=== PATIENT | female | born 1970 | race Caucasian/White ===

== ENCOUNTER → 2018-03-08 | Outpatient (CLI) | payer BC ==
[2018-03-08 14:09] LABS: HCT 41.8 % (34.0-46.0); MCH 32.8 pg (25.0-35.0); MCHC 33.4 g/dL (31.0-37.0); Mean Platelet Volume 6.8; Platelet Count 299 k/uL (150-450); RBC 4.27 m/uL (3.80-5.40); RDW 12.6 % (11.5-15.5); WBC 11.5 k/uL (3.8-10.6)
[2018-03-08 14:32] LABS: ALT 70 U/L (9-52); AST 43 U/L (14-36); Albumin 4.3 g/dL (3.5-5.0); Alkaline Phosphatase 77 U/L (38-126); Anion Gap 12 mmol/L; Blood Urea Nitrogen 10 mg/dL (7-17); Calcium 9.6 mg/dL (8.4-10.2); Carbon Dioxide 27 mmol/L (22-30); Chloride 105 mmol/L (98-107); Glucose 90 mg/dL (74-99); Potassium 4.3 mmol/L (3.5-5.1); Sodium 144 mmol/L (137-145); Total Bilirubin 0.4 mg/dL (0.2-1.3); Total Protein 7.3 g/dL (6.3-8.2)
--- NOTE | 2018-03-08 14:47 | US ---
EXAMINATION TYPE: US thyroid st tissue head/neck DATE OF EXAM: 03/08/2018 COMPARISON: NONE CLINICAL HISTORY: R53.83 OTHER FATIGUE. GLAND SIZE: Right Lobe: 3.0 x 1.5 x 1.6 cm Overall Parenchyma: heterogenous Left Lobe: 1.9 x 1.1 x 0.8 cm Overall Parenchyma: heterogeneous Isthmus Thickness: 0.2 cm NODULES RIGHT: # of nodules measured on right: 1 1. 0.9 X 0.5 x 0.5 cm hypoechoic solid nodule at the lower pole with well-defined margins. This no dule is wider than tall and shows no intranodular vascularity. No prior LEFT: # of nodules measured on left: 0 ISTHMUS: # of nodules measured in the isthmus: 0 Bilateral neck scanned, no evidence of lymphadenopathy. IMPRESSION: There may be an underlying thyroiditis.
== END | disposition home or self-care (01) ==
LOC: RADUSWWP 13:32
PROVIDERS: ATTEND Internal Medicine Endocrinology, Diabetes & Metabolism
DX: R53.83 Other fatigue (principal); N92.6 Irregular menstruation, unspecified
CPT/HCPCS: 76536; 80053; 82533; 82607; 83001; 83002; 84146; 84443; 85027

== ENCOUNTER → 2018-06-21 | Outpatient (CLI) | payer BC | END | disposition home or self-care (01) | LOC: LABWHC1 13:28 | PROVIDERS: ATTEND Internal Medicine Endocrinology, Diabetes & Metabolism | DX: E03.8 Other specified hypothyroidism (principal); R53.83 Other fatigue | CPT/HCPCS: 36415; 84443 ==

== ENCOUNTER → 2018-07-31 | Outpatient (CLI) | payer BC ==
--- NOTE | 2018-07-31 15:49 | CT ---
EXAMINATION TYPE: CT abdomen pelvis w con DATE OF EXAM: 07/31/2018 COMPARISON: NONE HISTORY: 47-year-old female abdominal pain, Epigastric pressure/pain TECHNIQUE: Contiguous axial scanning of the abdomen and pelvis following administration of 100 ml Iso shahrzad 300 IV contrast. Delayed images through the kidneys and coronal/sagittal reconstructions perform ed. CT DLP: 1450.5 mGycm Automated exposure control for dose reduction was used. FINDINGS: Heart normal size without pericardial effusion. Strandy atelectasis left base without pleural effusio n. Low attenuation of the hepatic parenchyma suggesting underlying fatty infiltration. Portal venous sys tem is patent. No biliary ductal dilatation. Gallbladder, adrenal glands, kidneys, spleen, and pancreas are within normal limits. No dilated small bowel, free fluid, or free air. No mesenteric or retroperitoneal lymphadenopathy. Normal appendix. Mild stool burden without pericolonic inflammatory change. Bladder urine distended. Pelvic phleboliths on the left. Uterus and ovaries are visualized with a 1.7 cm dominant follicle or functional cyst on the left. No abnormal fluid collection the pelvis or pelv ic lymphadenopathy. Bones: No osseous destructive process. IMPRESSION: 1. HEPATIC STEATOSIS. CORRELATE WITH LFT's, LIPID PROFILE, AND PATIENT RISK FACTORS. 2. OTHERWISE, NO ACUTE INFLAMMATORY PROCESS IDENTIFIED IN THE ABDOMEN OR PELVIS TO EXPLAIN THE PATIEN T'S SYMPTOMS.
== END | disposition home or self-care (01) ==
LOC: RADCTMAIN 12:39
PROVIDERS: ATTEND Family Medicine
DX: K76.0 Fatty (change of) liver, not elsewhere classified (principal); R10.9 Unspecified abdominal pain
CPT/HCPCS: 74177; Q9967

== ENCOUNTER → 2018-10-09 | Outpatient (CLI) | payer BC ==
--- NOTE | 2018-10-10 10:59 | MM ---
Reason for exam: screening (asymptomatic). Last mammogram was performed 7 years and 10 months ago. History: Patient is nulliparous. Physical Findings: A clinical breast exam by your physician is recommended on an annual basis and results should be correlated with mammographic findings. MG 3D Screening Mammo W/Cad Bilateral CC and MLO view(s) were taken. XCCL view(s) were taken of the left breast. Prior study comparison: December 07, 2010, mammogram, performed at [facility]. There are scattered fibroglandular densities. No significant changes when compared with prior studies. ASSESSMENT: Benign, BI-RAD 2 RECOMMENDATION: Routine screening mammogram of both breasts in 1 year.
== END | disposition home or self-care (01) ==
LOC: RADMAMWWP 13:39
PROVIDERS: ATTEND Family Medicine
DX: Z12.31 Encounter for screening mammogram for malignant neoplasm of breast (principal)
CPT/HCPCS: 77063; 77067

== ENCOUNTER 2019-07-13 16:21 | Emergency (ER) | payer BC ==
[2019-07-13] MEDS ORDERED: DICYCLOMINE 10 MG/ML 2 ML AMP IM STA (17:18)
[2019-07-13] MEDS ORDERED: PANTOPRAZOLE 40 MG/10 ML VIAL IVP STA (17:18)
[2019-07-13] MEDS ORDERED: SODIUM CHLORIDE 0.9% 1,000 ML IV STA (17:18)
[2019-07-13 17:46] LABS: Basophils # (A) 0.1 k/uL (0-0.2); Basophils % (A) 1 %; Eosinophils # (A) 0.6 k/uL (0-0.7); Eosinophils % (A) 6 %; HCT 41.8 % (34.0-46.0); HGB 14.3 gm/dL (11.4-16.0); Lymphocytes # (A) 2.8 k/uL (1.0-4.8); Lymphocytes % (A) 30 %; MCH 32.7 pg (25.0-35.0); MCHC 34.3 g/dL (31.0-37.0); MCV 95.5 fL (80.0-100.0); Mean Platelet Volume 6.9; Monocytes # (A) 0.5 k/uL (0-1.0); Monocytes % (A) 5 %; Neutrophils # (A) 5.2 k/uL (1.3-7.7); Neutrophils % (A) 56 %; Platelet Count 339 k/uL (150-450); RBC 4.37 m/uL (3.80-5.40); RDW 12.5 % (11.5-15.5); WBC 9.3 k/uL (3.8-10.6)
[2019-07-13 17:54] LABS: Appearance,Urine Clear (Clear); Bilirubin,Urine Negative (Negative); Blood,Urine Negative (Negative); Color,Urine Light Yellow; Glucose,Urine (UA) Negative (Negative); Ketones,Urine Negative (Negative); Leukocyte Esterase,Urine Negative (Negative); Nitrite,Urine Negative (Negative); PH, Urine 6.5 (5.0-8.0); Protein,Urine Negative (Negative); Specific Gravity,Urine 1.003 (1.001-1.035); Urobilinogen,Urine <2.0 mg/dL (<2.0)
[2019-07-13 17:56] LABS: ALT 22 U/L (9-52); AST 50 U/L (14-36); African American GFR (CKD) >90 (>60 ml/min/1.73 sqM); Albumin 4.5 g/dL (3.5-5.0); Alkaline Phosphatase 65 U/L (38-126); Amylase 68 U/L (30-110); Anion Gap 9 mmol/L; Blood Urea Nitrogen 10 mg/dL (7-17); Calcium 9.3 mg/dL (8.4-10.2); Carbon Dioxide 24 mmol/L (22-30); Chloride 103 mmol/L (98-107); Glucose 91 mg/dL (74-99); Sodium 136 mmol/L (137-145); Total Bilirubin 0.9 mg/dL (0.2-1.3); Total Protein 8.4 g/dL (6.3-8.2)
[2019-07-13 17:57] LABS: Potassium 5.8 mmol/L (3.5-5.1)
[2019-07-13] MEDS ORDERED: DICYCLOMINE 20 MG TAB PO STA (18:24)
--- NOTE | 2019-07-13 18:59 | ED ---
General Adult HPI - General Chief complaint: GI Bleed Stated complaint: diarrhea Time Seen by Provider: 07/13/19 16:36 Source: patient, RN notes reviewed Mode of arrival: ambulatory Limitations: no limitations - History of Present Illness Initial comments: 48-year-old female with a past medical history of constipation, GERD presents to the emergency department for a chief when her diarrhea. Patient states she has had diarrhea for about 2 weeks. States it is very loose. Patient states to 3 episodes of bright red blood in the toilet bowl over the past several days. States she does have abdominal pain that comes and goes on a cramping fashion. Worse in the lower abdomen. Denies nausea vomiting. Does admit to a hospitalization at the beginning of June for removal of polyps on vocal cord. Otherwise denies any longterm visits, travel, or camping.Patient has no other complaints at this time including shortness of breath, chest pain, nausea or vomiting, headache, or visual changes. - Related Data Home Medications Medication Instructions Recorded Confirmed Cholecalciferol [Vitamin D3] 2,000 unit PO DAILY 12/09/15 12/14/15 Levothyroxine Sodium [Synthroid] 25 mcg PO DAILY 12/09/15 12/14/15 Vitamin B Complex 1 each PO DAILY 12/09/15 12/14/15 Previous Rx's Medication Instructions Recorded Dicyclomine [Bentyl] 20 mg PO BID PRN #10 tablet 07/13/19 Allergies Allergy/AdvReac Type Severity Reaction Status Date / Time No Known Allergies Allergy Verified 07/13/19 16:31 Review of Systems ROS Statement: Those systems with pertinent positive or pertinent negative responses have been documented in the HPI. ROS Other: All systems not noted in ROS Statement are negative. Past Medical History Past Medical History: GERD/Reflux, Osteoarthritis (OA), Skin Disorder, Thyroid Disorder Additional Past Medical History / Comment(s): constipation, hx localized morphea, History of Any Multi-Drug Resistant Organisms: None Reported Past Surgical History: Breast Surgery, Orthopedic Surgery Additional Past Surgical History / Comment(s): rt foot and ankle surgery, polyps removed on vocal cords Past Anesthesia/Blood Transfusion Reactions: No Reported Reaction Past Psychological History: No Psychological Hx Reported Smoking Status: Former smoker Past Alcohol Use History: None Reported Past Drug Use History: None Reported - Past Family History Mother Family Medical History: No Reported History General Exam Limitations: no limitations General appearance: alert, in no apparent distress Head exam: Present: atraumatic, normocephalic, normal inspection Eye exam: Present: normal appearance, PERRL, EOMI. Absent: scleral icterus, conjunctival injection, periorbital swelling ENT exam: Present: normal exam, mucous membranes moist Neck exam: Present: normal inspection, full ROM. Absent: tenderness, meningismus, lymphadenopathy Respiratory exam: Present: normal lung sounds bilaterally. Absent: respiratory distress, wheezes, rales, rhonchi, stridor Cardiovascular Exam: Present: regular rate, normal rhythm, normal heart sounds. Absent: systolic murmur, diastolic murmur, rubs, gallop, clicks GI/Abdominal exam: Present: soft, tenderness (Suprapubic and left lower quadrant tenderness noted), normal bowel sounds. Absent: distended, guarding, rebound, rigid Rectal exam: Present: normal inspection, normal rectal tone. Absent: black stool, bloody stool, fecal impaction, hemorrhoids, mass, tenderness Neurological exam: Present: alert Psychiatric exam: Present: normal affect, normal mood Course Vital Signs 07/13/19 07/13/19 16:28 19:33 Temperature 97.5 F L 98 F Pulse Rate 87 76 Respiratory 18 16 Rate Blood Pressure 135/77 115/72 O2 Sat by Pulse 98 99 Oximetry Medical Decision Making - Medical Decision Making CBC unremarkable. Hemoglobin is stable at 14.3. CMP did initially show potassium of 5.8 however the specimen was hemolyzed. Repeat potassium is 4.0. CMP otherwise unremarkable. Urinalysis is negative. Occult blood is negative. CT abdomen and pelvis was obtained which shows findings suggestive of colitis descending colon to rectum. However there is possibility of neoplasm within the rectum that should be considered. I did discuss this with patient and discussed the importance of post follow-up with GI. Patient has seen Dr. Jett in the past and will be referred to his practice. I do not think this is a bacterial colitis at this time as patient does not have a fever or white blood cell count. She was unable to give a sample here in the emergency department so will be given outpatient stool prescriptions for culture and C. diff. pending reevaluation patient is in much better. States she is actually feeling better and she salts in the past couple weeks. Patient will be discharged home. She'll return if she has any worsening symptoms. These were discussed with her such as fever or worsening pain.I discussed this case with attending Dr. Ramos who agrees with this assessment and treatment plan. - Lab Data Result diagrams: 07/13/19 16:49 07/13/19 18:45 Lab Results 07/13/19 07/13/19 07/13/19 Range/Units 16:49 16:49 16:49 WBC 9.3 (3.8-10.6) k/uL RBC 4.37 (3.80-5.40) m/uL Hgb 14.3 (11.4-16.0) gm/dL Hct 41.8 (34.0-46.0) % MCV 95.5 (80.0-100.0) fL MCH 32.7 (25.0-35.0) pg MCHC 34.3 (31.0-37.0) g/dL RDW 12.5 (11.5-15.5) % Plt Count 339 (150-450) k/uL Neutrophils % 56 % Lymphocytes % 30 % Monocytes % 5 % Eosinophils % 6 % Basophils % 1 % Neutrophils # 5.2 (1.3-7.7) k/uL Lymphocytes # 2.8 (1.0-4.8) k/uL Monocytes # 0.5 (0-1.0) k/uL Eosinophils # 0.6 (0-0.7) k/uL Basophils # 0.1 (0-0.2) k/uL Sodium 136 L (137-145) mmol/L Potassium 5.8 H (3.5-5.1) mmol/L Chloride 103 (98-107) mmol/L Carbon Dioxide 24 (22-30) mmol/L Anion Gap 9 mmol/L BUN 10 (7-17) mg/dL Creatinine 0.75 (0.52-1.04) mg/dL Est GFR (CKD-EPI)AfAm >90 (>60 ml/min/1.73 sqM) Est GFR (CKD-EPI)NonAf >90 (>60 ml/min/1.73 sqM) Glucose 91 (74-99) mg/dL Plasma Lactic Acid Raj (0.7-2.0) mmol/L Calcium 9.3 (8.4-10.2) mg/dL Total Bilirubin 0.9 (0.2-1.3) mg/dL AST 50 H (14-36) U/L ALT 22 (9-52) U/L Alkaline Phosphatase 65 (38-126) U/L Total Protein 8.4 H (6.3-8.2) g/dL Albumin 4.5 (3.5-5.0) g/dL Amylase 68 (30-110) U/L Lipase 263 (23-300) U/L Urine Color Urine Appearance (Clear) Urine pH (5.0-8.0) Ur Specific [place] (1.001-1.035) Urine Protein (Negative) Urine Glucose (UA) (Negative) Urine Ketones (Negative) Urine Blood (Negative) Urine Nitrite (Negative) Urine Bilirubin (Negative) Urine Urobilinogen (<2.0) mg/dL Ur Leukocyte Esterase (Negative) Urine HCG, Qual Not Detected (Not Detectd) Stool Occult Blood (Negative) Blood Type Blood Type Confirm Blood Type Recheck Bld Type Recheck Status Antibody Screen Spec Expiration Date 07/13/19 07/13/19 07/13/19 Range/Units 16:49 16:49 17:20 WBC (3.8-10.6) k/uL RBC (3.80-5.40) m/uL Hgb (11.4-16.0) gm/dL Hct (34.0-46.0) % MCV (80.0-100.0) fL MCH (25.0-35.0) pg MCHC (31.0-37.0) g/dL RDW (11.5-15.5) % Plt Count (150-450) k/uL Neutrophils % % Lymphocytes % % Monocytes % % Eosinophils % % Basophils % % Neutrophils # (1.3-7.7) k/uL Lymphocytes # (1.0-4.8) k/uL Monocytes # (0-1.0) k/uL Eosinophils # (0-0.7) k/uL Basophils # (0-0.2) k/uL Sodium (137-145) mmol/L Potassium (3.5-5.1) mmol/L Chloride (98-107) mmol/L Carbon Dioxide (22-30) mmol/L Anion Gap mmol/L BUN (7-17) mg/dL Creatinine (0.52-1.04) mg/dL Est GFR (CKD-EPI)AfAm (>60 ml/min/1.73 sqM) Est GFR (CKD-EPI)NonAf (>60 ml/min/1.73 sqM) Glucose (74-99) mg/dL Plasma Lactic Acid Raj 0.6 L (0.7-2.0) mmol/L Calcium (8.4-10.2) mg/dL Total Bilirubin (0.2-1.3) mg/dL AST (14-36) U/L ALT (9-52) U/L Alkaline Phosphatase (38-126) U/L Total Protein (6.3-8.2) g/dL Albumin (3.5-5.0) g/dL Amylase (30-110) U/L Lipase (23-300) U/L Urine Color Light Yellow Urine Appearance Clear (Clear) Urine pH 6.5 (5.0-8.0) Ur Specific [place] 1.003 (1.001-1.035) Urine Protein Negative (Negative) Urine Glucose (UA) Negative (Negative) Urine Ketones Negative (Negative) Urine Blood Negative (Negative) Urine Nitrite Negative (Negative) Urine Bilirubin Negative (Negative) Urine Urobilinogen <2.0 (<2.0) mg/dL Ur Leukocyte Esterase Negative (Negative) Urine HCG, Qual (Not Detectd) Stool Occult Blood (Negative) Blood Type O Positive Blood Type Confirm Blood Type Recheck No Previous Record Bld Type Recheck Status CABO Indicated Antibody Screen NEGATIVE Spec Expiration Date 07/16/2019 - 234807/13/19 07/13/19 07/13/19 Range/Units 17:20 18:21 18:45 WBC (3.8-10.6) k/uL RBC (3.80-5.40) m/uL Hgb (11.4-16.0) gm/dL Hct (34.0-46.0) % MCV (80.0-100.0) fL MCH (25.0-35.0) pg MCHC (31.0-37.0) g/dL RDW (11.5-15.5) % Plt Count (150-450) k/uL Neutrophils % % Lymphocytes % % Monocytes % % Eosinophils % % Basophils % % Neutrophils # (1.3-7.7) k/uL Lymphocytes # (1.0-4.8) k/uL Monocytes # (0-1.0) k/uL Eosinophils # (0-0.7) k/uL Basophils # (0-0.2) k/uL Sodium (137-145) mmol/L Potassium 4.0 (3.5-5.1) mmol/L Chloride (98-107) mmol/L Carbon Dioxide (22-30) mmol/L Anion Gap mmol/L BUN (7-17) mg/dL Creatinine (0.52-1.04) mg/dL Est GFR (CKD-EPI)AfAm (>60 ml/min/1.73 sqM) Est GFR (CKD-EPI)NonAf (>60 ml/min/1.73 sqM) Glucose (74-99) mg/dL Plasma Lactic Acid Raj (0.7-2.0) mmol/L Calcium (8.4-10.2) mg/dL Total Bilirubin (0.2-1.3) mg/dL AST (14-36) U/L ALT (9-52) U/L Alkaline Phosphatase (38-126) U/L Total Protein (6.3-8.2) g/dL Albumin (3.5-5.0) g/dL Amylase (30-110) U/L Lipase (23-300) U/L Urine Color Urine Appearance (Clear) Urine pH (5.0-8.0) Ur Specific [place] (1.001-1.035) Urine Protein (Negative) Urine Glucose (UA) (Negative) Urine Ketones (Negative) Urine Blood (Negative) Urine Nitrite (Negative) Urine Bilirubin (Negative) Urine Urobilinogen (<2.0) mg/dL Ur Leukocyte Esterase (Negative) Urine HCG, Qual (Not Detectd) Stool Occult Blood Negative (Negative) Blood Type Blood Type Confirm O Positive Blood Type Recheck Bld Type Recheck Status Antibody Screen Spec Expiration Date Disposition Clinical Impression: Diarrhea, Colitis Disposition: HOME SELF-CARE Condition: Good Instructions (If sedation given, give patient instructions): Colitis (ED), Acute Diarrhea (ED) Additional Instructions: Please take Bentyl as needed. Given outpatient stool sample. Follow-up with GI and primary care tomorrow morning. If you have worsening symptoms such as worsening pain or fever return immediately to the emergency department. Prescriptions: Dicyclomine [Bentyl] 20 mg PO BID PRN #10 tablet PRN Reason: pain Is patient prescribed a controlled substance at d/c from ED?: No Referrals: Radha Markham MD [Primary Care Provider] - 1-2 days Time of Disposition: 20:24
--- NOTE | 2019-07-13 19:45 | CT ---
EXAMINATION TYPE: CT abdomen pelvis w con DATE OF EXAM: 07/13/2019 COMPARISON: INDICATION: Abdominal pain, cramping. Chronic diarrhea, pt said nothing over counter is stopping diar pamela DLP: 1209.4 mGycm, Automated exposure control for dose reduction was used. CONTRAST: 100 mL of Isovue 300. Study performed without Oral Contrast TECHNIQUE: Axial images were obtained from above the diaphragm to the pubic rami in the axial plane a t 5 mm thick sections. Reconstructed images are reviewed on the computer in the coronal plane. FINDINGS: Limited CT sections are obtained the lung bases. The lung bases are clear. CT ABDOMEN: Liver: Normal Spleen: Normal Pancreas: Normal Adrenal glands: The adrenal glands are normal. Gallbladder: Normal Kidneys: No masses are evident. No hydronephrosis is present. No cysts are present. Delayed images were obtained through the kidneys, which remain unremarkable. Aorta: Vascular calcification is within the aorta. Inferior vena cava: Normal. CT PELVIS: Subtle wall thickening appears to be within the sigmoid colon and distal descending colon. Correlate for mild colitis. No suspicious adjacent inflammatory changes are evident. There is some more irregul ar thickening of the rectum with some perirectal stranding. Colitis could be considered. Other etiolo gies should be considered such as neoplasm. Additional workup is recommended. The studies performed w ithout oral contrast limiting bowel evaluation. Appendix: Normal as visualized. Urinary bladder: Normal. Genitourinary structures: Uterus appears unremarkable. Adnexal regions are clear. Osseous structures: No suspicious lytic or sclerotic lesions. IMPRESSIONS: 1. Findings suggestive for colitis descending colon to rectum. Possibility of neoplasm within the re ctum should be considered.
[2019-07-13 20:59] VITALS: BP 118/75; PULSE 73; RESP 18; TEMP 98.2
== END 2019-07-13 21:14 | disposition home or self-care (01) ==
LOC: EC 16:21
DX: K52.9 Noninfective gastroenteritis and colitis, unspecified (principal); K21.9 Gastro-esophageal reflux disease without esophagitis; M19.90 Unspecified osteoarthritis, unspecified site; E07.9 Disorder of thyroid, unspecified; Z79.890 Hormone replacement therapy; Z79.899 Other long term (current) drug therapy; Z87.891 Personal history of nicotine dependence
CPT/HCPCS: 36415; 86900; 86901; 80053; 82150; 83605; 83690; 84132; 85025; 86850; 82272; 81003; 81025; 87324; 87045; 87046; 74177; 99285; 96374; 96361 ×3; C9113; Q9967

== ENCOUNTER → 2019-08-11 | Outpatient (CLI) | payer BC ==
[2019-08-11 16:45] LABS: Basophils % (A) 0 %; Eosinophils # (A) 0.1 k/uL (0-0.7); Eosinophils % (A) 1 %; HCT 41.3 % (34.0-46.0); Lymphocytes # (A) 2.2 k/uL (1.0-4.8); Lymphocytes % (A) 18 %; MCH 31.7 pg (25.0-35.0); MCHC 31.6 g/dL (31.0-37.0); MCV 100.3 fL (80.0-100.0); Mean Platelet Volume 7.2; Monocytes # (A) 0.5 k/uL (0-1.0); Monocytes % (A) 4 %; Neutrophils # (A) 9.2 k/uL (1.3-7.7); Neutrophils % (A) 76 %; Platelet Count 333 k/uL (150-450); RBC 4.11 m/uL (3.80-5.40); RDW 13.1 % (11.5-15.5); WBC 12.1 k/uL (3.8-10.6)
[2019-08-11 19:47] LABS: Erythrocyte Sedimentation Rate 10 mm/hr (0-20)
[2019-08-12 00:51] LABS: ALT 28 U/L (8-44); AST 21 U/L (13-35); African American GFR (CKD) 88.2 (60.0-200.0); Albumin/Globulin Ratio 1.91 (1.60-3.17); Alkaline Phosphatase 70 U/L (41-126); C Reactive Protein <0.4 mg/dL (0.0-0.8); Calcium 9.4 mg/dL (8.7-10.3); Carbon Dioxide 27.7 mmol/L (21.6-31.8); Chloride 102 mmol/L (96-109); Globulin 2.2 g/dL (1.6-3.3); Glucose 114 mg/dL (70-110); Non-African American GFR(CKD) 76.1 (60.0-200.0); Potassium 4.7 mmol/L (3.5-5.5); Sodium 139 mmol/L (135-145); Total Bilirubin 0.4 mg/dL (0.3-1.2); Total Protein 6.4 g/dL (6.2-8.2)
== END | disposition home or self-care (01) ==
LOC: LABWHC1 15:01
PROVIDERS: ATTEND Nurse Practitioner
DX: K52.9 Noninfective gastroenteritis and colitis, unspecified (principal)
CPT/HCPCS: 36415; 80053; 85025; 85652; 86140

== ENCOUNTER → 2019-09-01 | Outpatient (CLI) | payer BC | END | disposition home or self-care (01) | LOC: LABWHC1 10:56 | PROVIDERS: ATTEND Internal Medicine Endocrinology, Diabetes & Metabolism | DX: E03.8 Other specified hypothyroidism (principal) | CPT/HCPCS: 36415; 84443 ==

== ENCOUNTER → 2019-09-24 | Outpatient (CLI) | payer BC ==
[2019-09-24 17:51] LABS: Basophils # (A) 0.1 k/uL (0-0.2); Basophils % (A) 1 %; Eosinophils # (A) 0.6 k/uL (0-0.7); Eosinophils % (A) 8 %; HCT 41.7 % (34.0-46.0); HGB 13.3 gm/dL (11.4-16.0); Lymphocytes # (A) 2.2 k/uL (1.0-4.8); Lymphocytes % (A) 27 %; MCH 31.5 pg (25.0-35.0); MCV 98.5 fL (80.0-100.0); Mean Platelet Volume 7.9; Monocytes # (A) 0.4 k/uL (0-1.0); Monocytes % (A) 5 %; Neutrophils # (A) 4.6 k/uL (1.3-7.7); Neutrophils % (A) 57 %; Platelet Count 282 k/uL (150-450); RBC 4.23 m/uL (3.80-5.40); RDW 12.3 % (11.5-15.5); WBC 8.1 k/uL (3.8-10.6)
[2019-09-25 01:12] LABS: African American GFR (CKD) 77.7 (60.0-200.0); Albumin 4.4 g/dL (3.80-4.90); Albumin/Globulin Ratio 1.76 (1.60-3.17); Anion Gap 11.9 mmol/L (4.00-12.00); Calcium 9.2 mg/dL (8.7-10.3); Carbon Dioxide 24.1 mmol/L (21.6-31.8); Globulin 2.5 g/dL (1.6-3.3); Magnesium 2.2 mg/dL (1.5-2.4); Potassium 4.6 mmol/L (3.5-5.5); Total Bilirubin 0.2 mg/dL (0.3-1.2); Total Protein 6.9 g/dL (6.2-8.2)
== END | disposition home or self-care (01) ==
LOC: LABWHC1 15:52
PROVIDERS: ATTEND Nurse Practitioner
DX: K51.90 Ulcerative colitis, unspecified, without complications (principal)
CPT/HCPCS: 36415; 80053; 83735; 85025

== ENCOUNTER → 2020-02-02 | Outpatient (CLI) | payer BC ==
[2020-02-02 12:48] LABS: HCT 43.6 % (34.0-46.0); HGB 13.8 gm/dL (11.4-16.0); MCH 30.3 pg (25.0-35.0); MCHC 31.7 g/dL (31.0-37.0); MCV 95.8 fL (80.0-100.0); Mean Platelet Volume 7.9; Platelet Count 311 k/uL (150-450); RBC 4.55 m/uL (3.80-5.40); RDW 12.7 % (11.5-15.5); WBC 8.7 k/uL (3.8-10.6)
[2020-02-02 15:06] LABS: Erythrocyte Sedimentation Rate 24 mm/hr (0-20)
[2020-02-02 18:58] LABS: ALT 26 U/L (8-44); AST 25 U/L (13-35); African American GFR (CKD) 77.2 (60.0-200.0); Albumin/Globulin Ratio 1.43 (1.60-3.17); Alkaline Phosphatase 72 U/L (41-126); C Reactive Protein <0.4 mg/dL (0.0-0.8); Calcium 9.5 mg/dL (8.7-10.3); Carbon Dioxide 25.1 mmol/L (21.6-31.8); Chloride 104 mmol/L (96-109); Glucose 97 mg/dL (70-110); Non-African American GFR(CKD) 66.6 (60.0-200.0); Potassium 5.1 mmol/L (3.5-5.5); Sodium 138 mmol/L (135-145); Total Bilirubin 0.6 mg/dL (0.3-1.2); Total Protein 7.3 g/dL (6.2-8.2)
== END | disposition home or self-care (01) ==
LOC: LABWHC1 11:28
PROVIDERS: ATTEND Nurse Practitioner
DX: K51.90 Ulcerative colitis, unspecified, without complications (principal)
CPT/HCPCS: 36415; 80053; 83993; 85027; 85652; 86140

== ENCOUNTER → 2020-02-18 | Outpatient (CLI) | payer BC ==
--- NOTE | 2020-02-18 14:26 | XR ---
EXAMINATION TYPE: XR knee complete bilateral DATE OF EXAM: 02/18/2020 CLINICAL HISTORY: Bilateral pain assess for possible rheumatoid arthritis TECHNIQUE: Three views of the bilateral knees are obtained. COMPARISON: None. FINDINGS: There is no acute fracture/dislocation evident in either knee. [id number] patellofem oral joint space narrowing is seen bilaterally fairly symmetric. Mild medial tibiofemoral compartment narrowing is present bilaterally with some mild right-sided spurring. The overlying soft tissue olivia ears unremarkable bilaterally. IMPRESSION: As above.
--- NOTE | 2020-02-18 14:27 | XR ---
EXAMINATION TYPE: XR pelvis AP view DATE OF EXAM: 02/18/2020 CLINICAL HISTORY: Pain possible rheumatoid arthritis TECHNIQUE: A single AP view of the pelvis is obtained. COMPARISON: CT abdomen and pelvis July 13, 2019. FINDINGS: There is no acute fracture/dislocation evident in the pelvis. The sacroiliac joints appea r symmetric and unremarkable. Mild axial joint space loss and acetabular spurring of both hips fairl y symmetric in appearance. Occasional overlying Scattered pelvic phleboliths. IMPRESSION: As above.
--- NOTE | 2020-02-18 14:29 | XR ---
EXAMINATION TYPE: XR foot complete bilateral DATE OF EXAM: 02/18/2020 CLINICAL HISTORY: Bilateral foot pain, possible rheumatoid arthritis. TECHNIQUE: Frontal, lateral, and oblique images of the bilateral feet are obtained. COMPARISON: None FINDINGS: There is no acute fracture/dislocation evident in either foot. Overlying soft tissue is un remarkable bilaterally. Right foot shows mild to moderate narrowing with moderate spurring first metatarsal phalangeal joint. Tiny inferior calcaneal spur. Flexion of the toes. Left foot shows large inferior calcaneal spur. Some flexion of the toes is present. IMPRESSION: As above.
== END | disposition home or self-care (01) ==
LOC: RADXRMAIN 13:51
PROVIDERS: ATTEND Internal Medicine Rheumatology
DX: M22.2X1 Patellofemoral disorders, right knee (principal); I87.8 Other specified disorders of veins; M21.271 Flexion deformity, right ankle and toes; M21.272 Flexion deformity, left ankle and toes; M77.32 Calcaneal spur, left foot; M79.672 Pain in left foot; M79.671 Pain in right foot; M54.5 Low back pain
CPT/HCPCS: 72170

== ENCOUNTER → 2020-03-08 | Outpatient (CLI) | payer BC | END | disposition home or self-care (01) | LOC: LABWHC1 12:37 | PROVIDERS: ATTEND Internal Medicine Endocrinology, Diabetes & Metabolism | DX: E03.8 Other specified hypothyroidism (principal); E53.8 Deficiency of other specified B group vitamins | CPT/HCPCS: 36415; 82607; 84443 ==

== ENCOUNTER → 2020-03-25 | Outpatient (CLI) | payer BC ==
--- NOTE | 2020-03-26 09:32 | MM ---
Reason for exam: screening (asymptomatic). Last mammogram was performed 1 year and 6 months ago. History: Patient is nulliparous. Physical Findings: A clinical breast exam by your physician is recommended on an annual basis and results should be correlated with mammographic findings. MG 3D Screening Mammo W/Cad Bilateral CC and MLO view(s) were taken. Prior study comparison: October 09, 2018, bilateral MG 3d screening mammo w/cad. The breast tissue is heterogeneously dense. This may lower the sensitivity of mammography. Focal asymmetry right CC view only middle posterior depth outer aspect CC 16/66 10-11cm from nipple. This finding is changed when compared with previous exams. ASSESSMENT: Incomplete: need additional imaging evaluation, BI-RAD 0 RECOMMENDATION: Special view mammogram of the right breast. If lesion persists on supplemental views, image directed ultrasound is recommended. [facility] will attempt to contact patient to return for supplemental views and ultrasound if indicated.
== END | disposition home or self-care (01) ==
LOC: RADMAMWWP 09:55
PROVIDERS: ATTEND Internal Medicine
DX: Z12.31 Encounter for screening mammogram for malignant neoplasm of breast (principal)
CPT/HCPCS: 77063; 77067

== ENCOUNTER → 2020-04-01 | Outpatient (CLI) | payer BC ==
--- NOTE | 2020-04-02 10:10 | MM ---
Reason for exam: additional evaluation requested from abnormal screening. Last mammogram was performed less than 1 month ago. History: Patient is nulliparous. Excisional biopsy of the left breast, 2001. Excisional biopsy of the right breast. Took hormonal contraceptives for 23 years beginning at age 13. Physical Findings: Nurse did not find any significant physical abnormalities on exam. MG 3D Work Up W/Cad RT Spot compression CC, spot compression MLO, and LM view(s) were taken of the right breast. Prior study comparison: March 25, 2020, bilateral MG 3d screening mammo w/cad. October 09, 2018, bilateral MG 3d screening mammo w/cad. There is no discrete abnormality. These results were verbally communicated with the patient and result sheet given to the patient on 04/01/20. ASSESSMENT: Probably benign, BI-RAD 3 RECOMMENDATION: Follow-up diagnostic mammogram of the right breast in 6 months.
== END | disposition home or self-care (01) ==
LOC: RADMAMWWP 14:52
PROVIDERS: ATTEND Internal Medicine
DX: R92.8 Other abnormal and inconclusive findings on diagnostic imaging of breast (principal)
CPT/HCPCS: 77061; 77065

== ENCOUNTER → 2020-12-20 | Outpatient (CLI) | payer OTHER ==
[2020-12-20 18:13] LABS: HCT 40.7 % (37.2-46.3); HGB 13.2 g/dL (12.0-15.0); MCH 31.3 pg (27.0-32.0); MCHC 32.4 g/dL (32.0-37.0); MCV 96.4 fL (80.0-97.0); Mean Platelet Volume 10.7 fL (9.5-12.2); Platelet Count 279 X 10*3/uL (140-440); RBC 4.22 X 10*6/uL (4.10-5.20); RDW 11.9 % (11.5-14.5); WBC 6.75 X 10*3/uL (4.50-10.00)
[2020-12-20 19:14] LABS: Erythrocyte Sedimentation Rate 27 mm/Hr (0-20)
[2020-12-21 00:19] LABS: ALT 52 U/L (8-44); AST 37 U/L (13-35); African American GFR (CKD) 76.6 (60.0-200.0); Albumin/Globulin Ratio 1.73 (1.60-3.17); Alkaline Phosphatase 78 U/L (41-126); Carbon Dioxide 24.4 mmol/L (21.6-31.8); Chloride 106 mmol/L (96-109); Globulin 2.6 g/dL (1.6-3.3); Glucose 94 mg/dL (70-110); Non-African American GFR(CKD) 66.1 (60.0-200.0); Sodium 143 mmol/L (135-145); Total Bilirubin 0.4 mg/dL (0.2-1.2); Total Protein 7.1 g/dL (6.2-8.2)
[2020-12-21 15:11] LABS: C Reactive Protein <0.4 mg/dL (0.0-0.8)
== END | disposition home or self-care (01) ==
LOC: LABWHC1 11:49
PROVIDERS: ATTEND Nurse Practitioner
DX: K51.90 Ulcerative colitis, unspecified, without complications (principal)
CPT/HCPCS: 36415; 80053; 85027; 85652; 86140

== ENCOUNTER → 2020-12-23 | Outpatient (CLI) | payer OTHER ==
[2020-12-23 23:27] LABS: Hepatitis A Antibody IgM Non-Reactive (Non-Reactive); Hepatitis B Core IgM Non-Reactive (Non-Reactive); Hepatitis B Surface Antigen Non-Reactive (Non-Reactive); Hepatitis C IgG Antibody Non-Reactive (Non-Reactive)
== END | disposition home or self-care (01) ==
LOC: LABWHC1 09:16
PROVIDERS: ATTEND Nurse Practitioner
DX: K51.90 Ulcerative colitis, unspecified, without complications (principal)
CPT/HCPCS: 36415; 80074; 86480

== ENCOUNTER → 2021-02-11 | Outpatient (CLI) | payer OTHER ==
[2021-02-11 11:22] LABS: HCT 39.7 % (37.2-46.3); HGB 12.9 g/dL (12.0-15.0); MCH 31.2 pg (27.0-32.0); MCHC 32.5 g/dL (32.0-37.0); MCV 95.9 fL (80.0-97.0); Mean Platelet Volume 10.3 fL (9.5-12.2); Platelet Count 280 X 10*3/uL (140-440); RBC 4.14 X 10*6/uL (4.10-5.20); RDW 12.5 % (11.5-14.5); WBC 7.47 X 10*3/uL (4.50-10.00)
[2021-02-11 13:12] LABS: ALT 44 U/L (8-44); AST 34 U/L (13-35); Albumin/Globulin Ratio 1.45 (1.60-3.17); Alkaline Phosphatase 77 U/L (41-126); BUN/Creat Ratio 13.33 Ratio (12.00-20.00); C Reactive Protein <0.4 mg/dL (0.0-0.8); Calcium 9.1 mg/dL (8.7-10.3); Carbon Dioxide 20.4 mmol/L (21.6-31.8); Chloride 108 mmol/L (96-109); Globulin 2.9 g/dL (1.6-3.3); Glucose 107 mg/dL (70-110); Non-African American GFR(CKD) 75.1 (60.0-200.0); Potassium 4.7 mmol/L (3.5-5.5); Sodium 141 mmol/L (135-145); Total Bilirubin 0.5 mg/dL (0.3-1.2); Total Protein 7.1 g/dL (6.2-8.2)
[2021-02-11 14:52] LABS: Erythrocyte Sedimentation Rate 19 mm/Hr (0-20)
== END | disposition home or self-care (01) ==
LOC: LABWHC1 07:33
PROVIDERS: ATTEND Internal Medicine Endocrinology, Diabetes & Metabolism
DX: K51.90 Ulcerative colitis, unspecified, without complications (principal); E03.8 Other specified hypothyroidism
CPT/HCPCS: 36415; 80053; 84443; 85027; 85652; 86140

== ENCOUNTER → 2021-06-10 | Outpatient (CLI) | payer OTHER ==
--- NOTE | 2021-06-10 12:22 | FL ---
EXAMINATION TYPE: FL barium swallow DATE OF EXAM: 06/10/2021 CLINICAL HISTORY: Heartburn TECHNIQUE: A double contrast esophagram is performed utilizing air and barium. A total of 60 second s of fluoroscopic time was utilized during procedure and 23 images obtained. COMPARISON: None FINDINGS: The esophagus shows normal motility and emptying into the stomach. No evidence of hiatal h ernia or stricture noted. No significant gastroesophageal reflux was seen during real time performanc e of this study. IMPRESSION: No significant abnormality is seen to account for patient's symptoms. Correlate with di rect visualization as clinically warranted.
== END | disposition home or self-care (01) ==
LOC: RADUSWWP 10:04
PROVIDERS: ATTEND Otolaryngology
DX: R12 Heartburn (principal)
CPT/HCPCS: 74220

== ENCOUNTER → 2021-06-20 | Outpatient (CLI) | payer OTHER ==
[2021-06-20 15:38] LABS: Basophils # (A) 0.07 X 10*3/uL (0.00-0.10); Basophils % (A) 0.8 %; Eosinophils # (A) 0.83 X 10*3/uL (0.04-0.35); Eosinophils % (A) 9.2 %; HCT 43.2 % (37.2-46.3); HGB 13.7 g/dL (12.0-15.0); Lymphocytes # (A) 2.15 X 10*3/uL (0.90-5.00); Lymphocytes % (A) 23.9 %; MCHC 31.7 g/dL (32.0-37.0); MCV 94.7 fL (80.0-97.0); Mean Platelet Volume 10.3 fL (9.5-12.2); Monocytes # (A) 0.49 X 10*3/uL (0.20-1.00); Monocytes % (A) 5.4 %; Neutrophils # (A) 5.44 X 10*3/uL (1.80-7.70); Neutrophils % (A) 60.4 %; Platelet Count 308 X 10*3/uL (140-440); RBC 4.56 X 10*6/uL (4.10-5.20); RDW 12.8 % (11.5-14.5); WBC 9.01 X 10*3/uL (4.50-10.00)
[2021-06-20 17:37] LABS: Albumin 4.3 g/dL (3.8-4.9); Albumin/Globulin Ratio 1.28 (1.60-3.17); Anion Gap 11.3 mmol/L (4.00-12.00); BUN/Creat Ratio 15.56 Ratio (12.00-20.00); Calcium 9.6 mg/dL (8.7-10.3); Carbon Dioxide 25.4 mmol/L (21.6-31.8); Globulin 3.4 g/dL (1.6-3.3); Non-African American GFR(CKD) 75.1 (60.0-200.0); Potassium 4.9 mmol/L (3.5-5.5); Total Bilirubin 0.5 mg/dL (0.30-1.20); Total Protein 7.7 g/dL (6.2-8.2)
[2021-06-20 23:01] LABS: HIV 2 AB Non-Reactive (Non-Reactive); HIV AB P24 Non-Reactive (Non-Reactive); HIV P24 AG Non-Reactive (Non-Reactive)
== END | disposition home or self-care (01) ==
LOC: LABWHC1 09:23
PROVIDERS: ATTEND Internal Medicine Infectious Disease
DX: B37.9 Candidiasis, unspecified (principal)
CPT/HCPCS: 36415; 80053; 83036; 85025; 87390

== ENCOUNTER → 2021-06-20 | Outpatient (CLI) | payer OTHER ==
--- NOTE | 2021-06-20 12:06 | US ---
EXAMINATION TYPE: US pelvic complete DATE OF EXAM: 06/20/2021 COMPARISON: CT 2019 CLINICAL HISTORY: N92.6 irregular menses. Irregular painful periods x couple years, 0 TECHNIQUE: . Transabdominal sonographic images of the pelvis were acquired. Date of LMP: May 2021 EXAM MEASUREMENTS: Uterus: 6.4 x 2.6 x 4.0 cm Endometrial Stripe: 0.5 cm Right Ovary: 1.9 x 1.6 x 1.5 cm Left Ovary: 2.2 x 1.3 x 1.3 cm 1. Uterus: anteverted 2. Endometrium: appears wnl 3. Right Ovary: wnl 4. Left Ovary: wnl 5. Bilateral Adnexa: wnl 6. Posterior cul-de-sac: wnl IMPRESSION: No definite sonographic abnormality in the pelvis.
== END | disposition home or self-care (01) ==
LOC: RADUSWWP 09:20
PROVIDERS: ATTEND Family Medicine
DX: N92.6 Irregular menstruation, unspecified (principal)
CPT/HCPCS: 76856

== ENCOUNTER → 2021-06-29 | Outpatient (CLI) | payer OTHER | END | disposition home or self-care (01) | LOC: LABWHC1 09:04 | PROVIDERS: ATTEND Otolaryngology | DX: E03.9 Hypothyroidism, unspecified (principal); E06.9 Thyroiditis, unspecified | CPT/HCPCS: 36415; 86376 ==

== ENCOUNTER → 2021-08-10 | Outpatient (CLI) | payer OTHER | END | disposition home or self-care (01) | LOC: LABWHC1 08:21 | PROVIDERS: ATTEND Internal Medicine Endocrinology, Diabetes & Metabolism | DX: E03.8 Other specified hypothyroidism (principal) | CPT/HCPCS: 36415; 84443 ==

== ENCOUNTER → 2021-12-14 | Outpatient (CLI) | payer BC ==
[2021-12-14 10:46] LABS: Basophils # (A) 0.05 X 10*3/uL (0.00-0.10); Basophils % (A) 0.6 %; Eosinophils # (A) 0.47 X 10*3/uL (0.04-0.35); HCT 40.7 % (37.2-46.3); HGB 13.6 g/dL (12.0-15.0); Immature Grans, Automated 0.5 %; Lymphocytes # (A) 1.96 X 10*3/uL (0.90-5.00); Lymphocytes % (A) 24.9 %; MCH 30.4 pg (27.0-32.0); MCHC 33.4 g/dL (32.0-37.0); MCV 91.1 fL (80.0-97.0); Mean Platelet Volume 10.3 fL (9.5-12.2); Monocytes # (A) 0.46 X 10*3/uL (0.20-1.00); Monocytes % (A) 5.9 %; NRBC Per 100 WBC 0 /100 WBCS (0.0-0.0); Neutrophils # (A) 4.88 X 10*3/uL (1.80-7.70); Neutrophils % (A) 62.1 %; Platelet Count 293 X 10*3/uL (140-440); RBC 4.47 X 10*6/uL (4.10-5.20); RDW 12.8 % (11.5-14.5); WBC 7.86 X 10*3/uL (4.50-10.00)
[2021-12-14 15:08] LABS: ALT 36 U/L (8-44); AST 33 U/L (13-35); African American GFR (CKD) 84.9 (60.0-200.0); Albumin 4.2 g/dL (3.8-4.9); Albumin/Globulin Ratio 1.14 (1.60-3.17); Alkaline Phosphatase 91 U/L (41-126); BUN/Creat Ratio 21.14 Ratio (12.00-20.00); Blood Urea Nitrogen 19.3 mg/dL (9.0-27.0); Calcium 9.4 mg/dL (8.7-10.3); Carbon Dioxide 22.5 mmol/L (20.0-27.5); Chloride 104 mmol/L (96-109); Chol/HDL Ratio 3.95 Ratio; Follicle Stimulating Hormone 81.6 mIU/mL; Globulin 3.6 g/dL (1.6-3.3); Glucose 103 mg/dL (70-110); LDL Cholesterol,Calculated 131.8 mg/dL (0.0-131.0); Non-African American GFR(CKD) 73.3 (60.0-200.0); Potassium 4.5 mmol/L (3.5-5.5); Sodium 139 mmol/L (135-145); Total Protein 7.8 g/dL (6.2-8.2); VLDL Calculation 19.84 mg/dL (5.00-40.00)
== END | disposition home or self-care (01) ==
LOC: LABWHC1 08:16
PROVIDERS: ATTEND Internal Medicine Endocrinology, Diabetes & Metabolism
DX: I10 Essential (primary) hypertension (principal); E03.8 Other specified hypothyroidism; R53.83 Other fatigue; K51.90 Ulcerative colitis, unspecified, without complications; R00.2 Palpitations
CPT/HCPCS: 36415; 80053; 80061; 82024; 82533; 83001; 83036; 83735; 84146; 84439; 84443; 85025

== ENCOUNTER → 2022-01-16 | Outpatient (CLI) | payer BC ==
--- NOTE | 2022-01-16 12:59 | XR ---
EXAMINATION TYPE: XR chest 2V DATE OF EXAM: 01/16/2022 COMPARISON: Chest x-ray October 22, 2019 HISTORY: Chronic shortness of breath. TECHNIQUE: Frontal and lateral views of the chest are obtained. FINDINGS: There is no suspicious new focal air space opacity, pleural effusion, or pneumothorax seen . The cardiac silhouette size remains within normal limits. The osseous structures are intact. IMPRESSION: No acute cardiopulmonary process. No significant change from prior.
== END | disposition home or self-care (01) ==
LOC: RADXRMAIN 12:16
PROVIDERS: ATTEND Family Medicine
DX: R06.02 Shortness of breath (principal)
CPT/HCPCS: 71046

== ENCOUNTER → 2022-01-25 | Outpatient (CLI) | payer BC ==
--- NOTE | 2022-01-25 08:11 | MR ---
EXAMINATION TYPE: MR brain wo con DATE OF EXAM: 01/25/2022 COMPARISON: NONE HISTORY: Bilateral weakness, blurry vision TECHNIQUE: Multiplanar, multisequence imaging of the brain and brainstem is performed without IV cont rast. FINDINGS: Diffusion weighted images demonstrate no evidence of a recent infarct or other diffusion abnormality. The ventricular system and cisternal spaces are normal in size and appearance. The brain volume is a ge appropriate. Occasional focus of T2 hyperintensity throughout the deep left white matter. Lesions are nonspecific in appearance and distribution Midline structures demonstrate normal morphology. Suprasellar cistern is maintained. The craniocervic al junction appears within normal limits. Normal vascular flow voids are present. The visualized sinu ses are clear and the globes are intact. Patchy increased fluid signal inferior left mastoid air cell s. IMPRESSION: 1. Minimal nonspecific white matter changes. 2. Possible mild left-sided mastoiditis, correlate clinically.
== END | disposition home or self-care (01) ==
LOC: RADMRIMAIN 07:06
PROVIDERS: ATTEND Ophthalmology
DX: R90.82 White matter disease, unspecified (principal); H53.8 Other visual disturbances; R53.1 Weakness
CPT/HCPCS: 70551

== ENCOUNTER → 2022-04-19 | Outpatient (CLI) | payer BC | END | disposition home or self-care (01) | LOC: LABWHC1 08:37 | PROVIDERS: ATTEND Internal Medicine Endocrinology, Diabetes & Metabolism | DX: E03.8 Other specified hypothyroidism (principal); R73.03 Prediabetes | CPT/HCPCS: 36415; 83036; 84443 ==

== ENCOUNTER → 2022-05-24 | Outpatient (CLI) | payer BC ==
--- NOTE | 2022-05-25 20:07 | MM ---
Reason for Exam: Screening (asymptomatic). Last screening mammogram was performed 12 month(s) ago. Patient History: Menarche at age 13. Patient has no children. Hormonal Contraceptives for 23 years from age 13 until age 36. Currently using Estrogen and Progesterone, starting at age 50. 2001, Excisional Biopsy on the Right side. 2001, Excisional Biopsy on the Left side. Risk Values: Hillary 5 year model risk: 1.6%. NCI Lifetime model risk: 14.5%. Prior Study Comparison: 03/25/2020 Bilateral Screening Mammogram, [facility]. 04/01/2020 Right Diagnostic Mammogram, [facility]. 05/04/2021 Bilateral Diagnostic Mammogram, [facility]. Tissue Density: There are scattered fibroglandular densities. Findings: Analyzed By CAD. There is no suspicious group of microcalcifications or new suspicious mass in either breast. Overall Assessment: Negative, BI-RAD 1 Management: Screening Mammogram of both breasts in 1 year. 1. Patient should continue monthly self breast exams. 2. A clinical breast exam by your physician is recommended on an annual basis. 3. This exam should not preclude additional follow-up of suspicious palpable abnormalities. Electronically signed and approved by: Juan C Nazairo M.D. Radiologist
== END | disposition home or self-care (01) ==
LOC: RADMAMWWP 07:39
PROVIDERS: ATTEND Family Medicine
DX: Z12.31 Encounter for screening mammogram for malignant neoplasm of breast (principal); Z98.890 Other specified postprocedural states
CPT/HCPCS: 77063; 77067

== ENCOUNTER → 2022-06-02 | Outpatient (CLI) | payer BC ==
--- NOTE | 2022-06-02 12:58 | XR ---
EXAMINATION TYPE: XR lumbar spine 2 or 3V DATE OF EXAM: 06/02/2022 CLINICAL HISTORY: Low back pain. TECHNIQUE: Frontal and lateral images of the lumbar spine are obtained. COMPARISON: None FINDINGS: There are 5 lumbar type vertebral bodies identified. The lumbar spine shows satisfactory alignment without evidence of acute fracture or dislocation. Vertebral body heights and disk space he ights are within normal limits. Mild anterior spurring L3-L5 levels is present. Mild to moderate over lying arterial vascular calcification is seen in the lower lumbar spine. A 6 mm oval density over the inferior left L2 vertebra frontal view is not clearly seen on lateral view, this would be unusual lo cation for proximal ureter calculus. Mild to moderate colonic fecal prominence noted. Correlate clinically. IMPRESSION: As above.
--- NOTE | 2022-06-02 15:11 | XR ---
EXAMINATION TYPE: XR thoracic spine 2V DATE OF EXAM: 06/02/2022 CLINICAL HISTORY: Thoracic spine pain TECHNIQUE: Frontal, lateral, and swimmer's view of thoracic spine are obtained. COMPARISON: None. FINDINGS: Thoracic spine show satisfactory alignment without evidence of acute fracture or dislocatio n. Vertebral body heights and disc space heights are preserved. Mild to moderate multilevel anterior spurring is present. Mild lateral spurring in the lower thoracic spine is seen. Visualized ribs are intact bilaterally. IMPRESSION: As above.
== END | disposition home or self-care (01) ==
LOC: RADXRMAIN 12:15
PROVIDERS: ATTEND Nurse Practitioner Family
DX: M54.6 Pain in thoracic spine (principal); M54.50 Low back pain, unspecified
CPT/HCPCS: 72070; 72100

== ENCOUNTER → 2022-07-03 | Outpatient (CLI) | payer BC ==
[2022-07-03 14:25] LABS: Basophils # (A) 0.07 X 10*3/uL (0.00-0.10); Basophils % (A) 0.7 %; Eosinophils # (A) 0.27 X 10*3/uL (0.04-0.35); Eosinophils % (A) 2.8 %; HCT 41.7 % (37.2-46.3); HGB 13.4 g/dL (12.0-15.0); Immature Grans, Automated 0.3 %; Lymphocytes # (A) 2.34 X 10*3/uL (0.90-5.00); Lymphocytes % (A) 24.1 %; MCH 32.3 pg (27.0-32.0); MCHC 32.1 g/dL (32.0-37.0); MCV 100.5 fL (80.0-97.0); Mean Platelet Volume 10.2 fL (9.5-12.2); Monocytes # (A) 0.71 X 10*3/uL (0.20-1.00); Monocytes % (A) 7.3 %; NRBC Per 100 WBC 0 /100 WBCS (0.0-0.0); Neutrophils % (A) 64.8 %; Platelet Count 312 X 10*3/uL (140-440); RBC 4.15 X 10*6/uL (4.10-5.20); RDW 13.1 % (11.5-14.5); WBC 9.72 X 10*3/uL (4.50-10.00)
[2022-07-03 14:49] LABS: African American GFR (CKD) 74.3 (60.0-200.0); Albumin 4.1 g/dL (3.8-4.9); Albumin/Globulin Ratio 1.43 (1.60-3.17); Anion Gap 9.4 mmol/L (10.00-18.00); BUN/Creat Ratio 22.16 Ratio (12.00-20.00); Blood Urea Nitrogen 22.6 mg/dL (9.0-27.0); Calcium 9.2 mg/dL (8.7-10.3); Carbon Dioxide 25.6 mmol/L (20.0-27.5); Globulin 2.9 g/dL (1.6-3.3); Non-African American GFR(CKD) 64.1 (60.0-200.0); Potassium 4.7 mmol/L (3.5-5.5); Total Bilirubin 0.2 mg/dL (0.30-1.20)
== END | disposition home or self-care (01) ==
LOC: LABWHC1 10:07
PROVIDERS: ATTEND Internal Medicine Gastroenterology
DX: K51.90 Ulcerative colitis, unspecified, without complications (principal)
CPT/HCPCS: 36415; 80053; 85025

== ENCOUNTER → 2022-12-01 | Outpatient (CLI) | payer BC | END | disposition home or self-care (01) | LOC: LABWHC1 09:48 | PROVIDERS: ATTEND Psychiatry & Neurology Neurology | DX: H02.409 Unspecified ptosis of unspecified eyelid (principal) | CPT/HCPCS: 36415 ==

== ENCOUNTER → 2023-06-14 | Outpatient (CLI) | payer BC ==
[2023-06-14 16:29] LABS: Basophils # (A) 0.07 X 10*3/uL (0.00-0.10); Basophils % (A) 0.9 %; Eosinophils # (A) 0.34 X 10*3/uL (0.04-0.35); Eosinophils % (A) 4.4 %; HCT 39.9 % (37.2-46.3); HGB 12.1 d/dL (12.0-15.0); Lymphocytes # (A) 2.18 X 10*3/uL (0.90-5.00); Lymphocytes % (A) 28.1 %; MCHC 30.3 d/dL (32.0-37.0); MCV 89.1 FL (80.0-97.0); Mean Platelet Volume 10.5 FL (9.5-12.2); Monocytes # (A) 0.68 X 10*3/uL (0.20-1.00); Monocytes % (A) 8.8 %; NRBC Per 100 WBC 0 X 10*3/uL (0.00-0.01); Neutrophils # (A) 4.47 X 10*3/uL (1.80-7.70); Neutrophils % (A) 57.4 %; Platelet Count 312 X 10*3/uL (140-440); RBC 4.48 X 10*6/uL (4.10-5.20); RDW 16.2 % (11.5-14.5); WBC 7.77 X 10*3/uL (4.50-10.00)
[2023-06-14 16:47] LABS: ALT 25 U/L (8-44); AST 23 U/L (13-35); Albumin 4.1 d/dL (3.8-4.9); Albumin/Globulin Ratio 1.32 Ratio (1.60-3.17); Alkaline Phosphatase 114 U/L (41-126); Blood Urea Nitrogen 15.7 mg/dL (9.0-27.0); Calcium 8.8 mg/dL (8.7-10.3); Carbon Dioxide 24.5 mmol/L (21.6-31.8); Chloride 105 mmol/L (96-109); Globulin 3.1 d/dL (1.6-3.3); Glucose 100 mg/dL (70-110); Potassium 4.7 mmol/L (3.5-5.5); Sodium 138 mmol/L (135-145); Total Bilirubin <0.2 mg/dL (0.3-1.2); Total Protein 7.2 d/dL (6.2-8.2)
== END | disposition home or self-care (01) ==
LOC: LABWHC1 08:04
PROVIDERS: ATTEND Internal Medicine Gastroenterology
DX: K51.90 Ulcerative colitis, unspecified, without complications (principal)
CPT/HCPCS: 80053; 85025

== ENCOUNTER → 2023-07-18 | Outpatient (CLI) | payer BC ==
--- NOTE | 2023-07-19 09:18 | MM ---
Reason for Exam: Screening (asymptomatic). Last mammogram was performed 1 year(s) and 2 month(s) ago. Patient History: Menarche at age 13. Patient has no children. Hormonal Contraceptives for 23 years from age 13 until age 36. Currently using Estrogen and Progesterone, starting at age 50. 2001, Excisional Biopsy on the Right side. 2001, Excisional Biopsy on the Left side. Risk Values: Hillary 5 year model risk: 1.7%. NCI Lifetime model risk: 14.3%. Prior Study Comparison: 04/01/2020 Right Diagnostic Mammogram, [facility]. 05/04/2021 Bilateral Diagnostic Mammogram, [facility]. 05/24/2022 Bilateral MG 3D screening mammo w/cad, [facility]. Tissue Density: The breast tissue is almost entirely fat. Findings: Analyzed By CAD. There is no suspicious group of microcalcifications or new suspicious mass in either breast. Overall Assessment: Negative, BI-RAD 1 Management: Screening Mammogram of both breasts in 1 year. . Patient should continue monthly self-breast exams. A clinical breast exam by your physician is recommended on an annual basis. This exam should not preclude additional follow-up of suspicious palpable abnormalities. Note on Hillary scores and lifetime risk: 1. A Hillary score greater than 3% is considered moderate risk. If this is the case, consider specialist referral to assess eligibility for a risk reducing agent. 2. If overall lifetime risk for the development of breast cancer is 20% or higher, the patient may qualify for future screening with alternating mammogram and breast MRI. Electronically signed and approved by: Kavin Simmons M.D. Radiologis
== END | disposition home or self-care (01) ==
LOC: RADMAMWWP 07:58
PROVIDERS: ATTEND Family Medicine
DX: Z12.31 Encounter for screening mammogram for malignant neoplasm of breast (principal)
CPT/HCPCS: 77063; 77067

== ENCOUNTER → 2023-09-12 | Outpatient (CLI) | payer BC | END | disposition home or self-care (01) | LOC: LABWHC1 08:28 | PROVIDERS: ATTEND Internal Medicine Endocrinology, Diabetes & Metabolism | DX: E03.8 Other specified hypothyroidism (principal) | CPT/HCPCS: 36415; 84443 ==

== ENCOUNTER → 2023-12-03 | Outpatient (CLI) | payer BC ==
[2023-12-03 17:29] LABS: Basophils # (A) 0.06 X 10*3/uL (0.00-0.10); Basophils % (A) 0.8 %; Eosinophils # (A) 0.33 X 10*3/uL (0.04-0.35); Eosinophils % (A) 4.2 %; HCT 40.7 % (37.2-46.3); HGB 12.6 g/dL (12.0-15.0); Lymphocytes # (A) 2.56 X 10*3/uL (0.90-5.00); Lymphocytes % (A) 32.3 %; MCH 26.4 pg (27.0-32.0); MCV 85.1 FL (80.0-97.0); Mean Platelet Volume 10.2 FL (9.5-12.2); Monocytes # (A) 0.58 X 10*3/uL (0.20-1.00); Monocytes % (A) 7.3 %; NRBC Per 100 WBC 0 X 10*3/uL (0.00-0.01); Neutrophils # (A) 4.37 X 10*3/uL (1.80-7.70); Neutrophils % (A) 55.1 %; Platelet Count 338 X 10*3/uL (140-440); RBC 4.78 X 10*6/uL (4.10-5.20); RDW 17.1 % (11.5-14.5); WBC 7.92 X 10*3/uL (4.50-10.00)
== END | disposition home or self-care (01) ==
LOC: LABWHC1 11:38
PROVIDERS: ATTEND Internal Medicine Gastroenterology
DX: K51.90 Ulcerative colitis, unspecified, without complications (principal)
CPT/HCPCS: 36415; 80053; 85025

== ENCOUNTER → 2023-12-04 | Outpatient (CLI) | payer BC ==
[2023-12-04 14:55] LABS: ALT 48 U/L (4-34); AST 48 U/L (14-36); African American GFR (CKD) 82 (>60 ml/min/1.73 sqM); Albumin 4.3 g/dL (3.5-5.0); Albumin/Globulin Ratio 1.2; Alkaline Phosphatase 116 U/L (38-126); Anion Gap 10 mmol/L; Blood Urea Nitrogen 14 mg/dL (7-17); Calcium 9.1 mg/dL (8.4-10.2); Carbon Dioxide 18 mmol/L (22-30); Chloride 111 mmol/L (98-107); Globulin 3.7 g/dL; Glucose 112 mg/dL (74-99); Non-African American GFR(CKD) 71 (>60 ml/min/1.73 sqM); Potassium 3.9 mmol/L (3.5-5.1); Sodium 139 mmol/L (137-145); Total Bilirubin 0.3 mg/dL (0.2-1.3)
== END | disposition home or self-care (01) ==
LOC: LABWHC1 14:26
PROVIDERS: ATTEND Internal Medicine Gastroenterology
DX: K51.90 Ulcerative colitis, unspecified, without complications (principal)
CPT/HCPCS: 36415; 80053

== ENCOUNTER → 2023-12-24 | Outpatient (CLI) | payer BC | END | disposition home or self-care (01) | LOC: LABWHC1 09:31 | PROVIDERS: ATTEND Internal Medicine Endocrinology, Diabetes & Metabolism | DX: E03.8 Other specified hypothyroidism (principal) | CPT/HCPCS: 36415; 84443 ==

== ENCOUNTER → 2024-05-30 | Outpatient (CLI) | payer BC ==
[2024-05-30 15:38] LABS: Basophils # (A) 0.06 X 10*3/uL (0.00-0.10); Basophils % (A) 0.7 %; Eosinophils # (A) 0.36 X 10*3/uL (0.04-0.35); Eosinophils % (A) 4.1 %; HCT 35.1 % (37.2-46.3); HGB 10.6 g/dL (12.0-15.0); Lymphocytes # (A) 2.34 X 10*3/uL (0.90-5.00); Lymphocytes % (A) 26.6 %; MCH 24.2 pg (27.0-32.0); MCHC 30.2 g/dL (32.0-37.0); MCV 80.1 FL (80.0-97.0); Mean Platelet Volume 10.7 FL (9.5-12.2); Monocytes % (A) 6.8 %; NRBC Per 100 WBC 0 X 10*3/uL (0.00-0.01); Neutrophils # (A) 5.41 X 10*3/uL (1.80-7.70); Neutrophils % (A) 61.3 %; Platelet Count 356 X 10*3/uL (140-440); RBC 4.38 X 10*6/uL (4.10-5.20); RDW 16.9 % (11.5-14.5); WBC 8.81 X 10*3/uL (4.50-10.00)
[2024-05-30 16:12] LABS: ALT 25 U/L (8-44); AST 25 U/L (13-35); Albumin/Globulin Ratio 1.25 Ratio (1.60-3.17); Alkaline Phosphatase 119 U/L (41-126); Blood Urea Nitrogen 14.2 mg/dL (9.0-27.0); Calcium 9.2 mg/dL (8.7-10.3); Carbon Dioxide 23.3 mmol/L (21.6-31.8); Chloride 104 mmol/L (96-109); Globulin 3.2 g/dL (1.6-3.3); Glucose 98 mg/dL (70-110); Potassium 4.7 mmol/L (3.5-5.5); Sodium 139 mmol/L (135-145); Total Bilirubin <0.2 mg/dL (0.3-1.2); Total Protein 7.2 g/dL (6.2-8.2)
== END | disposition home or self-care (01) ==
LOC: LABWHC1 12:03
PROVIDERS: ATTEND Nurse Practitioner Family
DX: K51.90 Ulcerative colitis, unspecified, without complications (principal)
CPT/HCPCS: 36415; 80053; 85025

== ENCOUNTER 2024-07-15 09:15 | Day surgery (SDC) | payer BC ==
[2024-07-15 09:56] VITALS: TEMP 98.4
[2024-07-15] MEDS: IV FLUID CONTINUATION 1,000 ML IV ONE (10:06)
[2024-07-15] MEDS: LACTATED RINGERS 1,000 ML IV SCH (10:07)
[2024-07-15 10:15] LABS: Glucose,Whole Blood 112 mg/dL (70-110)
[2024-07-15] MEDS ORDERED: PROPOFOL 10 MG/ML 20 ML VIAL IV ONE (10:16)
--- NOTE | 2024-07-15 10:30 | P.PCN ---
Date of Procedure: 07/15/24 Procedure(s) Performed: BRIEF HISTORY: Patient is a 53-year-old pleasant white female scheduled for an elective colonoscopy as a part of screening for longstanding history of ulcerative colitis diagnosed in 2017. She is maintained on Entyvio infusions every 8 weeks since December 2020 and remains in clinical remission. PROCEDURE PERFORMED: Colonoscopy with random biopsies. PREOPERATIVE DIAGNOSIS: Screening for colon cancer/longstanding history of ulcerative colitis. IV sedation per Anesthesia. PROCEDURE: After informed consent was obtained, the patient, was brought into the endoscopy unit. IV sedation was administered by Anesthesia under continuous monitoring. Digital rectal examination was normal. Initially the Olympus CF-160 flexible video colonoscope was then inserted in the rectum, gradually advanced into the cecum without any difficulty. Careful examination was performed as the scope was gradually being withdrawn. Ileocecal valve and the appendiceal orifice were visualized and appeared normal. Prep was excellent. Mucosa of the cecum, ascending colon, transverse colon, descending colon, sigmoid colon, and rectum appeared normal. Biopsies were done from cecum to rectum at every 10 cm intervals rule out dysplasia retroflexion was performed in the rectum and no lesions were seen. The patient tolerated the procedure well. IMPRESSION: Normal-appearing colon from rectum to cecum with no evidence of active colitis or colorectal neoplasia. RECOMMENDATIONS: Findings of this examination were discussed with the patient as well as her family. She was advised to follow-up with the biopsy results. If the biopsy does not show any evidence of dysplasia, she can have repeat co lonoscopy in 2 years..
[2024-07-15 10:36] VITALS: PULSE 85; RESP 16
[2024-07-15 10:52] VITALS: BP 105/66
== END 2024-07-15 11:25 | disposition home or self-care (01) ==
LOC: ORWHC2ENDO 09:15
PROVIDERS: ATTEND Internal Medicine Gastroenterology
DX: K51.90 Ulcerative colitis, unspecified, without complications (principal); K76.0 Fatty (change of) liver, not elsewhere classified; E11.9 Type 2 diabetes mellitus without complications; E03.9 Hypothyroidism, unspecified; K21.9 Gastro-esophageal reflux disease without esophagitis; F32.A Depression, unspecified; F41.9 Anxiety disorder, unspecified; Z79.84 Long term (current) use of oral hypoglycemic drugs; Z79.890 Hormone replacement therapy; Z79.899 Other long term (current) drug therapy
CPT/HCPCS: 88305; 45380; J2704

== ENCOUNTER → 2024-07-24 | Outpatient (CLI) | payer BC ==
--- NOTE | 2024-07-25 12:41 | MM ---
Reason for Exam: Screening (asymptomatic). Last screening mammogram was performed 12 month(s) ago. Patient History: Menarche at age 13. Patient has no children. Postmenopausal. Hormonal Contraceptives for 23 years from age 13 until age 36. Currently using Estrogen and Progesterone, starting at age 50. 2001, Excisional Biopsy on the Right side. 2001, Excisional Biopsy on the Left side. Risk Values: Hillary 5 year model risk: 1.8%. NCI Lifetime model risk: 14.0%. Prior Study Comparison: 05/04/2021 Bilateral Diagnostic Mammogram, [facility]. 05/24/2022 Bilateral MG 3D screening mammo w/cad, [facility]. 07/18/2023 Bilateral MG 3D screening mammo w/cad, [facility]. Tissue Density: The breasts are almost entirely fatty. Findings: Analyzed By CAD. Right breast: There is no suspicious group of microcalcifications or new suspicious mass. Left breast: There is no suspicious group of microcalcifications or new suspicious mass. Overall Assessment: Negative, BI-RAD 1 Management: Screening Mammogram of both breasts in [address] [facility] will attempt to contact patient to return for supplemental views and ultrasound if indicated. Patient should continue monthly self-breast exams. A clinical breast exam by your physician is recommended on an annual basis. This exam should not preclude additional follow-up of suspicious palpable abnormalities. Note on Hillary scores and lifetime risk: 1. A Hillary score greater than 3% is considered moderate risk. If this is the case, consider specialist referral to assess eligibility for a risk reducing agent. 2. If overall lifetime risk for the development of breast cancer is 20% or higher, the patient may qualify for future screening with alternating mammogram and breast MRI. [facility], , 07/25/2024 12:38 PM. Electronically signed and approved by: Scotty Small DO
== END | disposition home or self-care (01) ==
LOC: RADMAMWWP 15:07
PROVIDERS: ATTEND Family Medicine
DX: Z12.31 Encounter for screening mammogram for malignant neoplasm of breast (principal); Z78.0 Asymptomatic menopausal state
CPT/HCPCS: 77063; 77067

== ENCOUNTER → 2024-12-05 | Outpatient (CLI) | payer BC ==
[2024-12-05 16:33] LABS: ALT 47 U/L (8-44); AST 35 U/L (13-35); Albumin 4.1 g/dL (3.8-4.9); Albumin/Globulin Ratio 1.32 Ratio (1.60-3.17); Alkaline Phosphatase 118 U/L (41-126); BUN/Creat Ratio 20.67 Ratio (12.00-20.00); Blood Urea Nitrogen 18.6 mg/dL (9.0-27.0); Calcium 9.5 mg/dL (8.7-10.3); Chloride 102 mmol/L (96-109); Globulin 3.1 g/dL (1.6-3.3); Glucose 101 mg/dL (70-110); Potassium 4.7 mmol/L (3.5-5.5); Sodium 139 mmol/L (135-145); Total Bilirubin 0.2 mg/dL (0.3-1.2); Total Protein 7.2 g/dL (6.2-8.2)
[2024-12-05 16:59] LABS: Anisocytosis (M) 2+ (None Seen); Basophils # (A) 0.09 X 10*3/uL (0.00-0.10); Eosinophils # (A) 0.28 X 10*3/uL (0.04-0.35); Eosinophils % (A) 3.1 %; HCT 43.5 % (37.2-46.3); HGB 13.2 g/dL (12.0-15.0); Lymphocytes # (A) 2.88 X 10*3/uL (0.90-5.00); MCHC 30.3 g/dL (32.0-37.0); MCV 85.8 FL (80.0-97.0); Mean Platelet Volume 10.1 FL (9.5-12.2); Monocytes # (A) 0.69 X 10*3/uL (0.20-1.00); Monocytes % (A) 7.7 %; NRBC Per 100 WBC 0 X 10*3/uL (0.00-0.01); Neutrophils % (A) 55.6 %; Platelet Count 305 X 10*3/uL (140-440); RBC 5.07 X 10*6/uL (4.10-5.20); WBC 8.99 X 10*3/uL (4.50-10.00)
== END | disposition home or self-care (01) ==
LOC: LABWHC1 11:08
PROVIDERS: ATTEND Nurse Practitioner Family
DX: K51.90 Ulcerative colitis, unspecified, without complications (principal)
CPT/HCPCS: 36415; 80053; 85025

== ENCOUNTER → 2025-02-23 | Outpatient (CLI) | payer BC ==
--- NOTE | 2025-02-23 12:00 | FL ---
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 All patient questions were ans wered prior to start of procedure. Multiple spot fluoroscopic images of the esophagus were obtained a fter the oral ingestion of effervescent crystals and liquid barium as the contrast agent. DAP: NOT REPORTED mGym2 FINDINGS: The esophagus demonstrates normal primary and secondary peristalsis. The esophageal mucosa is smooth without evidence of focal stricture, ulceration, or abnormal outpouching. No gastroesophageal reflu x disease was identified IMPRESSION: 1. Normal esophagram. No evidence for polyp. [facility], , 02/23/2025 11:58 AM
== END | disposition home or self-care (01) ==
LOC: RADFLMAIN 09:00
PROVIDERS: ATTEND Family Medicine
DX: J38.1 Polyp of vocal cord and larynx (principal)
CPT/HCPCS: 74220

== ENCOUNTER → 2025-03-27 | Outpatient (CLI) | payer BC ==
--- NOTE | 2025-03-27 13:01 | FL ---
Exam Date: 03/27/2025 12:37 PM. Modified barium swallow for dysphagia. Consistencies administered: Various consistency of barium. No images were sent to PACS. Please see speech pathology report. DAP: not Reported mGym2 Gycm2 [facility], , 03/27/2025 12:58 PM
== END | disposition home or self-care (01) ==
LOC: RADFLMAIN 11:52
PROVIDERS: ATTEND Otolaryngology
DX: R13.10 Dysphagia, unspecified (principal); T17.810A Gastric contents in other parts of respiratory tract causing asphyxiation, initial encounter; R05.9 Cough, unspecified; R49.0 Dysphonia
CPT/HCPCS: 74230